=== PATIENT | female | born 1940 | race Caucasian/White ===

== ENCOUNTER 2016-12-30 14:23 | Outpatient (CLI) | payer MEDICARE, MEDICAID ==
[2013-04-06 04:30] VITALS: BP 112/65
== END 2016-12-30 14:24 ==
LOC: LAB 14:23
PROVIDERS: ATTEND Pediatrics
DX: E87.5 Hyperkalemia (principal)
CPT/HCPCS: 36415; 84132

== ENCOUNTER 2017-01-05 10:38 | Outpatient (CLI) | payer MEDICARE, MEDICAID ==
[2013-04-06 04:30] VITALS: BP 112/65
== END 2017-01-05 11:00 ==
LOC: CARD 10:38
PROVIDERS: ATTEND Internal Medicine Cardiovascular Disease
DX: I50.9 Heart failure, unspecified (principal)
CPT/HCPCS: G0463

== ENCOUNTER 2017-03-09 13:31 | Outpatient (CLI) | payer MEDICARE, OTHER ==
[2013-04-06 04:30] VITALS: BP 112/65
== END 2017-03-09 13:32 ==
LOC: CARD 13:31
PROVIDERS: ATTEND Internal Medicine Cardiovascular Disease
DX: I48.91 Unspecified atrial fibrillation (principal); I50.9 Heart failure, unspecified; I35.0 Nonrheumatic aortic (valve) stenosis; Z86.718 Personal history of other venous thrombosis and embolism; Z86.711 Personal history of pulmonary embolism; G47.30 Sleep apnea, unspecified; E66.01 Morbid (severe) obesity due to excess calories; I10 Essential (primary) hypertension; E78.5 Hyperlipidemia, unspecified
CPT/HCPCS: 93005; G0463

== ENCOUNTER 2017-03-30 14:41 | Outpatient (CLI) | payer MEDICARE, MEDICAID ==
[2013-04-06 04:30] VITALS: BP 112/65
== END 2017-03-30 14:42 ==
LOC: CARD 14:41
PROVIDERS: ATTEND Internal Medicine Cardiovascular Disease
DX: I48.91 Unspecified atrial fibrillation (principal); I50.20 Unspecified systolic (congestive) heart failure; I35.0 Nonrheumatic aortic (valve) stenosis; Z86.718 Personal history of other venous thrombosis and embolism; Z79.01 Long term (current) use of anticoagulants; G47.30 Sleep apnea, unspecified; I10 Essential (primary) hypertension; E78.5 Hyperlipidemia, unspecified
CPT/HCPCS: G0463

== ENCOUNTER 2017-06-15 11:57 | Outpatient (CLI) | payer MEDICARE, OTHER ==
[2013-04-06 04:30] VITALS: BP 112/65
== END 2017-06-15 13:59 ==
LOC: CARD 11:57
PROVIDERS: ATTEND Internal Medicine Cardiovascular Disease
DX: I50.30 Unspecified diastolic (congestive) heart failure (principal); I35.0 Nonrheumatic aortic (valve) stenosis; G47.30 Sleep apnea, unspecified; E66.9 Obesity, unspecified; E11.9 Type 2 diabetes mellitus without complications; I10 Essential (primary) hypertension; E78.5 Hyperlipidemia, unspecified
CPT/HCPCS: G0463

== ENCOUNTER 2018-02-22 14:24 | Outpatient (CLI) | payer MEDICARE, OTHER ==
[2013-04-06 04:30] VITALS: BP 112/65
== END 2018-02-22 14:25 ==
LOC: CARD 14:24
PROVIDERS: ATTEND Internal Medicine Cardiovascular Disease
DX: I35.0 Nonrheumatic aortic (valve) stenosis (principal); G47.33 Obstructive sleep apnea (adult) (pediatric); E66.9 Obesity, unspecified; E11.9 Type 2 diabetes mellitus without complications; I10 Essential (primary) hypertension; E78.5 Hyperlipidemia, unspecified; Z79.899 Other long term (current) drug therapy; Z86.79 Personal history of other diseases of the circulatory system
CPT/HCPCS: 36415; 84443; G0463

== ENCOUNTER 2018-03-07 14:46 | Outpatient (CLI) | payer MEDICARE, OTHER ==
[2013-04-06 04:30] VITALS: BP 112/65
[2018-03-07 15:25] LABS: eGFR (African) > 60; eGFR (Non-African) 42
== END 2018-03-07 14:48 ==
LOC: LAB 14:46
PROVIDERS: ATTEND Internal Medicine Cardiovascular Disease
DX: I50.9 Heart failure, unspecified (principal)
CPT/HCPCS: 36415; 80048

== ENCOUNTER 2018-03-08 15:10 | Outpatient (CLI) | payer MEDICARE, OTHER ==
[2013-04-06 04:30] VITALS: BP 112/65
== END 2018-03-08 15:12 ==
LOC: CARD 15:10
PROVIDERS: ATTEND Internal Medicine Cardiovascular Disease
DX: I50.9 Heart failure, unspecified (principal); Z86.79 Personal history of other diseases of the circulatory system; I06.9 Rheumatic aortic valve disease, unspecified; G47.30 Sleep apnea, unspecified; E66.9 Obesity, unspecified; E11.9 Type 2 diabetes mellitus without complications; I10 Essential (primary) hypertension; E78.5 Hyperlipidemia, unspecified; Z79.899 Other long term (current) drug therapy
CPT/HCPCS: G0463

== ENCOUNTER 2018-05-31 10:34 | Outpatient (CLI) | payer MEDICARE, OTHER ==
[2013-04-06 04:30] VITALS: BP 112/65
== END 2018-05-31 10:35 ==
LOC: CARD 10:34
PROVIDERS: ATTEND Internal Medicine Cardiovascular Disease
DX: I50.9 Heart failure, unspecified (principal); I35.9 Nonrheumatic aortic valve disorder, unspecified; Z86.79 Personal history of other diseases of the circulatory system; G47.30 Sleep apnea, unspecified; E66.9 Obesity, unspecified; E11.9 Type 2 diabetes mellitus without complications; I10 Essential (primary) hypertension; E78.5 Hyperlipidemia, unspecified; Z79.899 Other long term (current) drug therapy
CPT/HCPCS: G0463